=== PATIENT | female | born 1995 | race Caucasian/White ===

== ENCOUNTER 2018-04-20 09:58 | Day surgery (SDC) | payer OTHER ==
[2018-04-20] MEDS ORDERED: LIDOCAINE 1% MDV 20ML VIAL SQ (10:00)
[2018-04-20 10:19] LABS: HEMATOCRIT 37.3 % (36.0-47.0); HEMOGLOBIN 12.4 g/dl (12.0-15.5); MEAN CORPUSCULAR HGB CONC 33.2 g/dl (32.0-36.5); MEAN CORPUSCULAR VOLUME 81.3 fl (80.0-96.0); PLATELET COUNT, AUTOMATED 302 10^3/uL (150-450); RED BLOOD COUNT 4.59 10^6/uL (4.00-5.40); RED CELL DISTRIBUTION WIDTH 13.2 % (11.5-14.5); WHITE BLOOD COUNT 7.5 10^3/uL (4.0-10.0)
[2018-04-20 10:54] LABS: HCG, SERUM QUANTITATIVE < 1.0 MIU/ML
[2018-04-20] MEDS: LR 1,000 ML IV (11:18)
[2018-04-20] MEDS ORDERED: ROCURONIUM BROMIDE 50 MG/5 ML VIAL As Ordered (14:35)
[2018-04-20] MEDS ORDERED: PROPOFOL 200 MG/20 ML VIAL As Ordered (14:35)
[2018-04-20] MEDS ORDERED: LIDOCAINE 2% INJ 100 MG/5 ML SDV (FOR ANES.) As Ordered (14:35)
[2018-04-20] MEDS ORDERED: fentaNYL 250 MCG/5 ML INJECTION (J3010) As Ordered (14:36)
[2018-04-20] MEDS ORDERED: MIDAZOLAM INJ 2 MG/2 ML VIAL (J2250) As Ordered (14:36)
[2018-04-20] MEDS ORDERED: ONDANSETRON 4MG/2ML VIAL (J2405) As Ordered (15:09)
[2018-04-20] MEDS ORDERED: KETOROLAC 60 MG/2 ML VIAL (J1885) As Ordered (15:09)
[2018-04-20] MEDS ORDERED: dexameTHASONE 4 MG/ML 1ML VIAL (J1100) As Ordered ×2 (15:09)
[2018-04-20] MEDS ORDERED: SUCCINYLCHOLINE 100 MG/5 ML SYRINGE (J0330) As Ordered (15:13)
[2018-04-20] MEDS ORDERED: MORPHINE 2 MG/ML 1ML SYRINGE (J2270) IV (16:15)
[2018-04-20] MEDS ORDERED: ONDANSETRON 4MG/2ML VIAL (J2405) IV ×2 (16:15)
[2018-04-20] MEDS ORDERED: fentaNYL 100 MCG/2 ML INJECTION (J3010) IV (16:15)
[2018-04-20] MEDS ORDERED: PERCOCET 5MG/325MG TAB PO (16:15)
[2018-04-20] MEDS ORDERED: LR 1,000 ML IV (16:15)
[2018-04-20] MEDS ORDERED: KETOROLAC 30 MG/ML VIAL (J1885) IV (21:00)
== END 2018-04-20 17:25 | disposition home or self-care (01) ==
LOC: M SDC 09:58
DX: N84.0 Polyp of corpus uteri (principal); N96 Recurrent pregnancy loss; E66.9 Obesity, unspecified; Z91.040 Latex allergy status; Z88.0 Allergy status to penicillin
CPT/HCPCS: 58558

== ENCOUNTER 2018-10-10 18:21 | Emergency (ER) | payer OTHER ==
[2018-10-10] MEDS: ACETAMINOPHEN 325 MG TAB PO (19:00)
[2018-10-10 19:09] LABS: BASO % 0.5 % (0.0-1.0); EOS # 0.1 10^3/uL (0.0-0.50); HEMATOCRIT 37.3 % (36.0-47.0); HEMOGLOBIN 12.2 g/dl (12.0-15.5); LYMPH % 48.4 % (24.0-44.0); MEAN CORPUSCULAR HEMOGLOBIN 26.6 pg (27.0-33.0); MEAN CORPUSCULAR HGB CONC 32.7 g/dl (32.0-36.5); MEAN CORPUSCULAR VOLUME 81.4 fl (80.0-96.0); MONO # 0.4 10^3/uL (0.0-0.8); MONO % 10.3 % (0.0-5.0); NEUTROPHILS # 1.6 10^3/uL (1.8-7.7); NEUTROPHILS % 38.8 % (36.0-66.0); PLATELET COUNT, AUTOMATED 308 10^3/uL (150-450); RED BLOOD COUNT 4.58 10^6/uL (4.00-5.40); RED CELL DISTRIBUTION WIDTH 13.2 % (11.5-14.5); WHITE BLOOD COUNT 4.1 10^3/uL (4.0-10.0)
[2018-10-10 19:35] LABS: ANION GAP 7 MEQ/L (8-16); BLOOD UREA NITROGEN 14 MG/DL (7-18); CARBON DIOXIDE LEVEL 26 MEQ/L (21-32); CHLORIDE LEVEL 106 MEQ/L (98-107); CREATININE FOR GFR 0.71 MG/DL (0.55-1.30); GLOMERULAR FILTRATION RATE > 60.0 (>60); GLUCOSE, FASTING 97 MG/DL (70-100); HCG, SERUM QUANTITATIVE 279 MIU/ML; POTASSIUM SERUM 3.8 MEQ/L (3.5-5.1); SODIUM LEVEL 139 MEQ/L (136-145)
== END 2018-10-10 21:32 | disposition home or self-care (01) ==
LOC: M ED 18:21
DX: N83.201 Unspecified ovarian cyst, right side (principal); Z3A.01 Less than 8 weeks gestation of pregnancy; Z88.0 Allergy status to penicillin; Z91.013 Allergy to seafood; Z91.040 Latex allergy status
CPT/HCPCS: 76801

== ENCOUNTER 2019-06-14 13:02 | Inpatient (IN) | payer OTHER ==
[~2019-06-14] VITALS: Ht 160 cm; Wt 118.0 kg
[2019-06-14] VITALS (13 sets, daily range): BP systolic 118–136; BP diastolic 59–84
[~2019-06-14 13:02] MED LIST: MULT1TAB10 PO; PRENTAB55 PO
[2019-06-14] MEDS ORDERED: PRENTAB9 PO (13:23)
--- NOTE | 2019-06-14 14:02 | NUR ---
Obstetrical History & Physical General Date of Admission Jun 14, 2019 at 08:19 History of Present Illness Christopher is a 23 y/o at 39+2 weeks via 7+2 week US on 02 NOV 2019 presenting for planned IOL d/t CHTN (on no meds, ASA dc'd at 35 weeks). Today she reports feeling well. She denies any vaginal bleeding or leakage of fluid. She endorses movement. Chief Complaint: Induction of labor Information Provided By: Patient Age: 21 : 7 Term: 1 Pre-term: Abortions: 5 Livin Care Care: Good Care Dating Final EDC: June 19, 2019 Final EDC for Daily Update: June 19, 2019 Final EDC by: 1st trimester (US) (7+2 week US on 02 NOV 2019 set SIENNA of 19 June 2019) 1st Trimester Date: Nov 30, 2018 Antepartum Course Diagnos(e)s CHTN-no anti-hypertensive medication management; ASA dc'd at 35 weeks BMI 44, early 1hr WN; GTT 100; TWG 8lbs Past Medical History Past Obstetrical History : Past Obstetrical History: Multigravida (37 week 6lb 15oz Sep 2015, SAB X4; one ectopic , G7 - current Type of Delivery: Spontaneous Vaginal Del. [employer] History: NML PAP 2018 Medical History obesity CHTN heart palpations- cardiology referral completed recurrent loss Surgical History: D&C x3; WTE (2010)-denies complications from surgery/anesthesia Family History Significant Family History: No pertinent family hx Family History Non contributory Social History Marital Status: Family situation: Spouse/partner home Psychosocial History: No pertinent psych hx * Smoker: non-smoker Alcohol: denies Drugs: denies Imunizations Tdap status: received 29 Mar 2019 Influenza Status: received 19 October 2018 Allergies Coded Allergies: Penicillins (Verified Allergy, Severe, DIFFICULTY BREATHING, 06/14/19) Latex (Verified Allergy, Severe, TONGUE SWELLS AND DIFFICULTY BREATHING, 06/14/19) Medications Scheduled No.137/Iron/Folic Acd ( Vitamin Tablet) 1 Each Tablet, 1 TAB PO DAILY Colace PRN Physical Examination Physical Examination VS: VSS, afebrile, normotensive GENERAL: Alert and oriented times three. ABDOMEN: Gravid and non-tender to touch. FETUS: Is vertex (VTX) by sterile vaginal examination (SVE) EXTREMITIES: No edema. Laboratory Data Pending in [employer] Pertinent Laboratoy Data Blood Type: B+ RBC Antibody Screen: Negative HIV: Negative Hepatitis B: Negative Hepatitis C: Unknown Rapid Plasma Reagin: Nonreactive Rubella: Immune Varicella: Immune Chlamydia/Gonorrhea: Negative Group B Streptococcus: Negative Quad Screen Test: Declined Cystic Fibrosis: Declined Glucose Tolerance Test: 100 Anatomy Ultrasound Placenta Location: Anterior Normal Anatomy: No Placenta Previa: No Vaginal Examination Dilation: 1 cm Effacement: 40% Station: -2 Cervical Consistency: Mid Cervical Position: Middle Presentation: Cephalic presentation Position: Vertex (occiput) Assessment Heart Rate (FHR): 150 Variability: Moderate Accelerations: Positive Decelerations: None Tocometer Contractions: Yes Frequency: irregular, rare Strength: palpated as mild Assessment/Plan Assessment Christopher is a 23 y/o at 39+2 weeks via 7+2 week US on 02 NOV 2019 admission for IOL d/t CHTN. CAT 1 FHR. Rare ctx. GBS NEG. Plan Admit to L&D for IOL. Apply IV fluids. GBS negative. Cervix unfavorable. Will start IOL with misoprostil for cervical ripening. Patient may have epidural when desired. Anticipate .
[2019-06-14] MEDS ORDERED: LACTATED RINGER'S 1000 ML IV STA (14:22)
[2019-06-14] MEDS ORDERED: miSOPROStol 50 MCG 1/2 TAB (S0191) PO ONE (14:30)
[2019-06-14 15:08] LABS: HEMATOCRIT 29.8 % (36.0-47.0); HEMOGLOBIN 9.7 g/dl (12.0-15.5); MEAN CORPUSCULAR HEMOGLOBIN 26.8 pg (27.0-33.0); MEAN CORPUSCULAR HGB CONC 32.6 g/dl (32.0-36.5); MEAN CORPUSCULAR VOLUME 82.3 fl (80.0-96.0); PLATELET COUNT, AUTOMATED 249 10^3/uL (150-450); RED BLOOD COUNT 3.62 10^6/uL (4.00-5.40); WHITE BLOOD COUNT 6.6 10^3/uL (4.0-10.0)
--- NOTE | 2019-06-14 18:41 | NUR ---
[facility] L&D Intrapartum Progress Note S: Christopher is a 23 y/o at 39+2 weeks via 7+2 week US on 02 NOV 2019 recently admitted for IOL d/t CHTN. Misoprostil 50mcg adm orally at 1445 for cervical ripening. Now pt is reporting feeling uterine cramping. Her spouse is present at the bs for support. She denies questions/concerns regarding plan of care. GBS NEG. O: VSS/AF GEN: A&Ox3, NAD ABD: Gravid, relaxed uterine resting tone inbetween ctx EXT: neg homans FHR: 145 bl with moderate variability; + accelerations; no decelerations ctx q 2-4 min lasting 30-45 seconds, minimal intensity via palpation. SCE: 1.5/60/-2, cephalic vtx A/P: 23 y/o at 39+2 weeks via 7+2 week US IOL for CHTN. CAT I FHR increasing regularity and intensity of ctx following one dose of oral miso. 80ml intracervical balloon catheter placed at this time and will transition from misoprostil to oxytocin for IOL. Pt concurs with plan. Safe to proceed. I anticipate .
[2019-06-14] MEDS ORDERED: LR 1,000 ML IV SCH (19:00)
[2019-06-14] MEDS ORDERED: OXYTOCIN DRIP 30 UNITS in APPROPRIATE DILUENT 1 EA IV SCH (19:00)
--- NOTE | 2019-06-14 20:05 | IPNPDOC ---
Text Note Date of Service The patient was seen on 06/14/19. NOTE Accepting care of Ms. Vidales this evening. She's a 23 yo at 39+2 weeks today who was admitted for an IOL for CHTN and class III obesity. Induction process was started with a dose of PO misoprostol. She then had a jackson bulb placed at ~1830 and was started on low dose pitocin. Jackson bulb remains in place. Ms. Vidales reports feeling fairly uncomfortable and desires something for pain relief. FHR: Cat I, moderate variability, +accels, no decels. Ctx Q2mins. Will order stadol for pain control. Continue with pitocin. Candidate for epidural when in active labor. All patient questions answered. DO Onel VS,Brandon, I+O VS, Brandon, I+O Laboratory Tests 06/14/19 14:52 Red Blood Count 3.62 L, Mean Corpuscular Volume 82.3, Mean Corpuscular Hemoglobin 26.8 L, Mean Corpuscular Hemoglobin Concent 32.6, Red Cell Distribution Width 14.5 Vital Signs Date Time Temp Pulse Resp B/P (MAP) Pulse Ox O2 Delivery O2 Flow Rate FiO2 06/14/19 16:55 98.2 101 18 122/68 (86) MARBELLA TOVAR DO Jun 14, 2019 20:04
[2019-06-14] MEDS ORDERED: BUTORPHANOL 2 MG/ML INJ (J0595) IV ONE (21:00)
--- NOTE | 2019-06-14 23:26 | IPNPDOC ---
Text Note Date of Service The patient was seen on 06/14/19. NOTE Pearl bulb out. Patient feeling significantly increased pain and pressure. Cervix: /-1. Bulging bag of water. FHR Cat I. Patient progressing well and now into active phase of labor. She desires an epidural and IV fluid bolus is running. Continue pitocin. DO Onel VS,Brandon, I+O VS, Hae, I+O Laboratory Tests 06/14/19 14:52 Red Blood Count 3.62 L, Mean Corpuscular Volume 82.3, Mean Corpuscular Hemoglobin 26.8 L, Mean Corpuscular Hemoglobin Concent 32.6, Red Cell Distribution Width 14.5 Vital Signs Date Time Temp Pulse Resp B/P (MAP) Pulse Ox O2 Delivery O2 Flow Rate FiO2 06/14/19 20:37 98.5 98 16 06/14/19 20:00 Room Air 06/14/19 16:55 122/68 (86) MARBELLA TOVAR DO Jun 14, 2019 23:26
[2019-06-14] MEDS ORDERED: FENTANYL 2MCG/ML ROPIVACAINE 0.2% IN 0.9% NACL 100ML IVBAG As Ordered ONE (23:39)
[2019-06-14] MEDS ORDERED: NALOXONE INJ 0.4 MG/1 ML VIAL (J2310) IV PRN (23:40)
[2019-06-14] MEDS ORDERED: LACTATED RINGER'S 1000 ML IV PRN (23:40)
[2019-06-14] MEDS ORDERED: FENTANYL/ROPIVACAINE/NACL BAG 100 ML EPIDURAL SCH (23:40)
[2019-06-14] MEDS ORDERED: ONDANSETRON 4MG/2ML VIAL (J2405) IV PRN (23:40)
[2019-06-14] MEDS ORDERED: diphenhydrAMINE INJ 50MG/ML VIAL (J1200) IV PRN (23:40)
[2019-06-14] MEDS ORDERED: EPIDURAL COMMENT XX SCH (23:40)
[2019-06-14] MEDS ORDERED: ePHEDrine SULFATE 25 MG/5 ML(5MG/ML) SYRINGE IV PRN (23:40)
[2019-06-14] MEDS ORDERED: REFRIGERATOR IV KEYS XX PRN (23:40)
[2019-06-14] MEDS ORDERED: EPIDURAL/PCA KEYS XX PRN (23:40)
[2019-06-15] VITALS (11 sets, daily range): BP systolic 117–147; BP diastolic 55–74
[2019-06-15] MEDS ORDERED: OXYTOCIN DRIP 30 UNITS in APPROPRIATE DILUENT 1 EA IV SCH (00:40)
[2019-06-15] MEDS ORDERED: MOM 30ML SUSPENSION UDC PO PRN (00:45)
[2019-06-15] MEDS ORDERED: MEASLES,MUMPS,RUBELLA VACCINE INJ (MMR-II) (90707) SC SCH (00:45)
[2019-06-15] MEDS ORDERED: LIDOCAINE 1% MDV 20ML VIAL SC ONE (00:45)
[2019-06-15] MEDS ORDERED: ACETAMINOPHEN TAB 650MG DOSE (2X325MG) PO PRN (00:45)
[2019-06-15] MEDS ORDERED: DOCUSATE SODIUM 100 MG CAP PO PRN (00:45)
[2019-06-15] MEDS ORDERED: ACETAMINOPHEN 500 MG TAB PO PRN (00:45)
[2019-06-15] MEDS ORDERED: DIBUCAINE 1% OINTMENT 30GM TOP PRN (00:45)
[2019-06-15] MEDS ORDERED: RHOGAM 300 MCG (1500 IU) INJ (J2790) IM SCH (00:45)
[2019-06-15] MEDS ORDERED: IBUPROFEN 800 MG TAB PO PRN (00:45)
[2019-06-15] MEDS ORDERED: PROMETHAZINE 25 MG TAB PO PRN (00:45)
--- NOTE | 2019-06-15 00:51 | DNPDOC ---
[facility] Delivery Note Delivery Note DATE OF DELIVERY: 15Jun2019 at ~0000 PREDELIVERY DIAGNOSIS: 39+3 weeks gestation and IOL for CHTN POST DELIVERY DIAGNOSIS: Delivered. PROCEDURE: Spontaneous vaginal delivery [employer] TECHNICIAN: Dr. Sykes ANESTHESIA: Epidural ESTIMATED BLOOD LOSS: 250 mL. FINDINGS: Viable female infant, 8lbs 2oz, Apgars 8/9 DELIVERY SUMMARY: Called to room as patient felt urge to push immediately after receiving epidural test dose. Upon my entry into the room he head was and was mostly delivered by the RN. SROM occurred with delivery and was clear. presentation was PAUL with restitution to ROT. The left anterior shoulder delivered with gentle traction followed easily by the remainde r of the body. The infant was dried and stimulated on the field and a bulb suction was used. The was then placed on the maternal abdomen and cried vigorously. The three vessel cord was then clamped and cut by the FOB after appropriate time delay. Third stage was then completed with gentle traction on the cord and it was productive of an intact placenta. The uterine fundus was firmed with massage and pitocin was administered via IV bolus. Inspection of the vagina, perineum, and cervix revealed a midline 3A degree laceration. Lidocaine was injected along the repair site for additional analgesia. The partially torn anal sphincter muscle was identified and repaired in multiple figure of eight sutures of 2-0 vicryl. The remainder of the 2nd degree laceration was repaired in the usual fashion with 3-0 vicryl suture. There was excellent cosmesis and hemostasis after the repair. A rectal exam was then performed which revealed no defects, sutures, or communication with the vagina and a tight anal sphincter. Copious irrigation was performed. The fundus was palpated again and was firm. Sponge, instrument, and needle counts were correct X2. Mother stable when I left the room. Patient given a dose of Ancef due to 3rd degree laceration. DO GUY Kendall CHRISTOPHER J. DO Jun 15, 2019 00:51
[2019-06-15] MEDS: IBUPROFEN 600 MG TAB PO PRN ×2 (06:10→18:29)
[2019-06-15] MEDS: PRENATAL VITAMINS CHEWABLE TABLET PO SCH (09:30)
[2019-06-16 05:52] VITALS: BP 118/60
[2019-06-16] MEDS: PRENATAL VITAMINS CHEWABLE TABLET PO SCH (09:58)
[2019-06-16] MEDS ORDERED: IBUP80TA PO (10:27)
[2019-06-16] MEDS ORDERED: DIBU10OI TOP (10:27)
[2019-06-16] MEDS ORDERED: ACET1TAB55 PO (10:27)
--- NOTE | 2019-06-16 10:40 | IPNPDOC ---
Progress Note Date of Service: Jun 16, 2019 Progress Note SUBJECT: Ms. Vidales is a 23yo G7 now P2 status post uncomplicated spontaneous vaginal delivery at 39+3wks on [id number] ~ midnight of an 8lb 2oz . Pt s/p 3A midline laceration with repair by Dr. Sykes. Pt denies any concerns today, report minimal lochia, ambulating and voiding spontaneously, tolerating regular diet. Pt is exclusively without issue. Pt denies all s/sx of Pre-E. complicated by CHTN, not on meds. OBJECTIVE: VITAL SIGNS: Within normal limits, afebrile. BPs mild range to normotensive. Alert and oriented times three. Heart rate: RRR Abdomen: Fundus firm at U-2. Soft, NTTP. Minimal lochia. ASSESSMENT: 23yo , PP Day #1, normal involution, stable and progressing well. VSS. exclusively. PLAN: 1. Complete discharge teaching and Discharge to home today. 2. Tylenol and Motrin for pain. Mirilax PRN. 3. Encourage breast feeding and ambulation. 4. Declines contracetpion 5. BP check in clinic on Thursday, 6. Routine PP visit in 6 weeks in clinic. 7. Discussed return precautions at length. VS, I&O, 24H, Fishbone Vital Signs/I&O Vital Signs Date Time Temp Pulse Resp B/P (MAP) Pulse Ox O2 Delivery O2 Flow Rate FiO2 06/16/19 05:52 99.0 84 18 118/60 (79) 06/15/19 18:00 99 06/14/19 20:00 Room Air MARIANELA MCNEAL CNM Jun 16, 2019 10:40
== END 2019-06-16 11:40 | disposition home or self-care (01) | DRG 768 ==
LOC: M LDI 13:02 → M OBS 06-15 02:21
PROVIDERS: ADMIT Advanced Practice Midwife; ATTEND Advanced Practice Midwife
PROC: 3E033VJ Introduction of Other Hormone into Peripheral Vein, Percutaneous Approach (ICD-10-PCS; 2019-06-14)
PROC: 3E0DXGC Introduction of Other Therapeutic Substance into Mouth and Pharynx, External Approach (ICD-10-PCS; 2019-06-14)
PROC: 10E0XZZ Delivery of Products of Conception, External Approach (ICD-10-PCS; principal; 2019-06-15)
PROC: 0DQP0ZZ Repair Rectum, Open Approach (ICD-10-PCS; 2019-06-15)
PROC: 0KQM0ZZ Repair Perineum Muscle, Open Approach (ICD-10-PCS; 2019-06-15)
DX: O10.92 Unspecified pre-existing hypertension complicating childbirth (principal); Z37.0 Single live birth; O70.3 Fourth degree perineal laceration during delivery; E66.9 Obesity, unspecified; Z3A.39 39 weeks gestation of pregnancy; O99.214 Obesity complicating childbirth; O70.1 Second degree perineal laceration during delivery

== ENCOUNTER 2019-07-08 11:07 | Observation (INO) | payer OTHER ==
[~2019-07-08] VITALS: Ht 160 cm; Wt 106.2 kg
[~2019-07-08 11:07] MED LIST changes: +ACET1TAB55 PO; +DIBU10OI TOP; +IBUP80TA PO; +PRENTAB9 PO
[2019-07-08] MEDS ORDERED: CLINDAMYCIN 900 MG in APPROPRIATE DILUENT 1 EA IV SCH (11:15)
--- NOTE | 2019-07-08 12:25 | HPEPDOC ---
General Date of Admission Jul 08, 2019 at 11:38 Date of Service: Jul 08, 2019 Chief Complaint Fever Source: Patient Exam Limitations: No limitations Timing/Duration: This morning Associated Symptoms: Denies Symptoms History of Present Illness 23yo [id number] s/p 3 weeks ago (c/b 3aMLL) states she woke up this morning feeling unwell. She took her temperature which was 102F, took some tylenol and then presented to the [facility] for evaluation. Upon arrival in the clinic, her Temp was 100.0, BP 123/74, HR 121. She has some right breast pain, worst in the upper inner quadrant so she thought she might have mastitis. She otherwise denies urinary/bowel symptoms, abd pain, abnl vaginal discharge, leg pain, chest pain, SOB, URI symptoms, perineal pain. Reports mild lochia that has been stable since delivery. Home Medications Scheduled No.137/Iron/Folic Acd ( Vitamin Tablet) 1 Each Tablet, 1 TAB PO DAILY, (Reported) Scheduled PRN Acetaminophen (Acetaminophen) 325 Mg Tablet, 650 MG PO Q4HP PRN for PAIN SCALE 1-5 Allergies Coded Allergies: Penicillins (Verified Allergy, Severe, ANAPHYLAXIS, 06/14/19) latex (Verified Allergy, Intermediate, RASH, HIVES, 06/14/19) shellfish derived (Verified Allergy, Mild, ITCHY, 06/14/19) Past Medical History Medical History Obesity (BMI 44) Chronic HTN not on meds Recurrent loss Surgical History D&C x3 [place] teeth Family History Significant Family History: No pertinent family hx Social History * Smoker: non-smoker Alcohol: Denies Drugs: denies Recent Travel/Sick Contacts: Denies: Recent travel, Recent sick contacts Psychosocial History: No pertinent psych hx A-FIB/CHADSVASC A-FIB History Current/History of A-Fib/PAF?: No Current PO Anticoag Therapy: No Review of Systems Constitutional: Reports: Fever, Malaise, Night Sweats, Weakness, Fatigue, Other; Denies: Chills, Weight Loss, Lethargy ENT: Denies: Head Aches, Sinus Congestion, Sore Throat Skin: Denies: Rash, Lesions Pulmonary: Denies: Dyspnea, Cough, Pleuritic Chest Pain Cardiovascular: Denies: Chest Pain, Palpitations, Orthopnea, Lt Headedness Gastrointestinal: Denies: Nausea, Vomiting, Abdominal Pain, Diarrhea, Constipation Genitourinary: Denies: Dysuria, Frequency, Incontinence, Hematuria Hematologic: Denies: Bleeding Excessively Endocrine: Denies: Heat Intolerance, Cold Intolerance Musculoskeletal: Denies: Neck Pain, Back Pain, Joint Pain Neurological: Denies: Weakness, Numbness, Change in speech, Confusion Psych: Reports: Mood Normal; Denies: Anxiety, Depression Physical Examination General Exam: Positive: Alert, Cooperative, No Acute Distress Eye Exam: Positive: PERRLA ENT Exam: Positive: Atraumatic, Mucous membr. moist/pink, Pharynx Normal Chest Exam: Positive: Clear to auscultation Heart Exam: Positive: Tachycardic, Regular Rhythm; Negative: Murmurs, Rubs Abdomen Exam: Positive: Soft, Tenderness (fundal tenderness present) Extremity Exam: Negative: Clubbing, Cyanosis, Edema Skin Exam: Negative: Nl turgor and temperature, Rash Neuro Exam: Positive: Normal Gait Psych Exam: Positive: Mental status NL Other physical findings ([employer] RN Nica) Breast: non-engorged bilaterally, no erythema, mild tenderness of whole right breast. Likely clogged duct in upper inner quadrant of right breast but no overlying erythema or induration NEFG. Well healed 3cMLL without erythema or drainage Uterus tender to palpation, no CMT, no adnexal tenderness TVUS: normal appearing uterus with 9mm homogenous endometrial stripe. Single nabothian cyst Vital Signs Temp 100.0F, BP 123/74, HR 121 Height (in): 63 Weight (kg): 105 Laboratory Data Labs 24H UA dip (clinic) Color afia Appearance clear SG 1.015 pH 6 Leukocytes 1+ Nitrite neg Protein trace Glucose normal Ketones small Urobili normal Bili 2+ Blood 250 Assessment/Plan 23yo lactating female 3 weeks with fever to 102 and right breast pain but otherwise no e/o mastitis. She does have uterine tenderness concerning for endometritis. Bedside pelvic US showed no retained products of conception. Given no other clear source of her fever (no UTI, no URI, perineal exam normal, and normal breast exam), recommend treatment for endometritis. Discussed that given her clinical status and distance from delivery, she may respond well to outpatient oral antibiotics, but that the standard of care for endometritis is IV antibiotics. She elected to proceed with hospital admission and IV antibiotics. This could represent an early case of mastitis, so recommend daily breast exams to monitor for development. Otherwise discussed ways to unclog ducts and fully empty her breasts. Safe to continue . Plan / VTE VTE Prophylaxis Ordered?: No VTE Exclusion Mechanical Proph: Low Risk for VTE VTE Exclusion Pharmacological: At Low Risk for VTE Plan Plan -Admit to hospital -IV Gentamicin 5mg/kg Q24 hours -IV Clindamycin 900mg Q8h -Repeat breast exam and fundal exam daily -LR @100cc/hr -Tylenol PRN fever or pain -Repeat UA/UCx -If afebrile overnight and clinically well, consider DC home tomorrow ALL: latex and PCN (hives) [place] MARSHALL MD Jul 08, 2019 12:25
[2019-07-08 12:50] VITALS: BP 152/80
[2019-07-08 12:55] LABS: HEMATOCRIT 35.8 % (36.0-47.0); HEMOGLOBIN 11.6 g/dl (12.0-15.5); MEAN CORPUSCULAR HEMOGLOBIN 26.4 pg (27.0-33.0); MEAN CORPUSCULAR HGB CONC 32.4 g/dl (32.0-36.5); MEAN CORPUSCULAR VOLUME 81.5 fl (80.0-96.0); PLATELET COUNT, AUTOMATED 262 10^3/uL (150-450); RED BLOOD COUNT 4.39 10^6/uL (4.00-5.40); WHITE BLOOD COUNT 9.8 10^3/uL (4.0-10.0)
[2019-07-08 13:15] LABS: HCG, SERUM QUALITATIVE NEGATIVE (NEGATIVE)
[2019-07-08 13:16] LABS: BLOOD UREA NITROGEN 9 MG/DL (7-18); CALCIUM LEVEL 9.2 MG/DL (8.5-10.1); CARBON DIOXIDE LEVEL 24 MEQ/L (21-32); CHLORIDE LEVEL 104 MEQ/L (98-107); CREATININE FOR GFR 0.79 MG/DL (0.55-1.30); GLOMERULAR FILTRATION RATE > 60.0 (>60); GLUCOSE, FASTING 84 MG/DL (70-100); POTASSIUM SERUM 3.7 MEQ/L (3.5-5.1); SODIUM LEVEL 138 MEQ/L (136-145)
[2019-07-08] MEDS: LR 1,000 ML IV SCH (13:30)
[2019-07-08] MEDS: CLINDAMYCIN 900 MG in APPROPRIATE DILUENT 1 EA IV SCH ×2 (14:26→22:37)
[2019-07-08] MEDS ORDERED: GENTAMICIN IV SCH (15:00)
[2019-07-08] MEDS ORDERED: D5W IV SCH (15:00)
[2019-07-08 20:00] VITALS: BP 136/77
[2019-07-08] MEDS: ACETAMINOPHEN TAB 650MG DOSE (2X325MG) PO PRN (20:11)
[2019-07-09] VITALS: BP 128/62
[2019-07-09] MEDS: LR 1,000 ML IV SCH (00:36)
[2019-07-09 04:00] VITALS: BP 127/64
[2019-07-09] MEDS: ACETAMINOPHEN TAB 650MG DOSE (2X325MG) PO PRN (04:11)
[2019-07-09] MEDS: CLINDAMYCIN 900 MG in APPROPRIATE DILUENT 1 EA IV SCH (05:28)
[2019-07-09 08:00] VITALS: BP 135/79
[2019-07-09 09:22] LABS: HEMATOCRIT 32.9 % (36.0-47.0); HEMOGLOBIN 10.5 g/dl (12.0-15.5); MEAN CORPUSCULAR HEMOGLOBIN 26.2 pg (27.0-33.0); MEAN CORPUSCULAR HGB CONC 31.9 g/dl (32.0-36.5); PLATELET COUNT, AUTOMATED 218 10^3/uL (150-450); RED BLOOD COUNT 4.01 10^6/uL (4.00-5.40); WHITE BLOOD COUNT 6.9 10^3/uL (4.0-10.0)
[2019-07-09] MEDS ORDERED: GENTAMICIN IV SCH (15:00)
[2019-07-09] MEDS ORDERED: D5W IV SCH (15:00)
--- NOTE | 2019-07-11 19:09 | DSES ---
DATE OF ADMISSION: 07/08/2019 DATE OF DISCHARGE: 07/09/2019 This lady is a 24-year-old 7, para 2 who had a spontaneous vaginal delivery three weeks ago. She came up feeling unwell, came in because she had a temperature 102, but took some Tylenol, presents with a temperature 100.0, blood pressure was 123/74, respirations were 18, and heart rate was 121. She had some significant right breast tenderness, probably related to a milk duct plug which was the upper inner quadrant, although she does not have evidence of mastitis. She was admitted as an inpatient for evaluation and medication. The possibility of endometritis or mastitis were the working diagnosis. Her risk factors are her body mass index (BMI) is 44. She has chronic hypertension but no medications. While in hospital, her blood pressures were stable. Her discharge blood pressure 127/64, respirations 20, pulse 108. She had one elevated temperature of 101 at 0400 on 07/09/2019. Otherwise, on 07/08/2019, she had no elevation of in temperature. Her medications that she was on were gentamicin, clindamycin, acetaminophen orally. Her complete blood count (CBC) indicated a hemoglobin of 11.6, hematocrit 35.8 and platelets were 262. Her white count was 9.8. On examination today, she is normocephalic, atraumatic. Neck: Full range of motion. Pupils equal and reactive to light. Distal pulses are symmetric. No evidence of deep vein thrombosis (DVT), pulmonary embolism (PE) or superficial phlebitis. Chest is clear bilaterally to bases. No wheezes or rhonchi. No costovertebral angle (CVA) tenderness. Abdomen is soft. Uterus is . There is no indication of tenderness, no foul lochia, and no discharge. On examination of her breasts bilaterally, they appeared to be normal. There is no evidence of inflammation, irritation, redness. She is pumping and getting quite a volume of milk. She says she feels well with no evidence of distress and is anxious to go home. The rest of the examination is unremarkable. Again, no DVT, PE or superficial phlebitis. Chest is clear bilaterally to bases. No wheezes or rhonchi. No rashes, lesions or pruritus. No arthralgia or myalgia. No complaint of joint pain. No complaint of cough, wheeze, shortness of breath or dyspnea on exertion. No nausea, vomiting, diarrhea, or constipation. No urgency or frequency. Plan of management is to continue to take her temperature at home. Continue with her vitamins, her acetaminophen which she has at home, and her medications. She has an appointment booked 07/27/2019 with the clinic and she is to maintain that. If she has any other issues, she is to call and make another appointment. The patient was discharged improved.
== END 2019-07-09 10:30 | disposition home or self-care (01) ==
LOC: M PED 11:38
PROVIDERS: ADMIT General Practice; ATTEND General Practice
DX: O86.12 Endometritis following delivery (principal); O92.29 Other disorders of breast associated with pregnancy and the puerperium; R50.9 Fever, unspecified; O16.5 Unspecified maternal hypertension, complicating the puerperium; O99.215 Obesity complicating the puerperium; Z68.41 Body mass index [BMI] 40.0-44.9, adult; Z88.0 Allergy status to penicillin; Z91.040 Latex allergy status; Z91.013 Allergy to seafood; N96 Recurrent pregnancy loss
CPT/HCPCS: 36415; 80048; 81001; 84703; 85027; 87088; 87186; 96361; 96365; 96366; 96367; J1580